=== PATIENT | male | born 1960 | race Caucasian/White ===

== ENCOUNTER 2025-05-29 15:52 | Emergency (ER) | payer MEDICAID, OTHER ==
[~2025-05-29] VITALS: Ht 180.3 cm; Wt 89.4 kg
[2025-05-29 16:29] VITALS: BP 145/89; TEMP 98.3; O2SAT 98
== END 2025-05-29 19:51 | disposition home or self-care (01) ==
LOC: ER 16:02
DX: M25.571 Pain in right ankle and joints of right foot (principal); Z88.5 Allergy status to narcotic agent; Z95.5 Presence of coronary angioplasty implant and graft
CPT/HCPCS: 73610-TC; 93971-TC